=== PATIENT | male | born 1970 | race Caucasian/White ===

== ENCOUNTER → 2021-03-29 | Outpatient (CLI) | payer OTHER | LOC: EMI 13:00 | DX: R20.2 Paresthesia of skin (principal); G56.03 Carpal tunnel syndrome, bilateral upper limbs; G54.0 Brachial plexus disorders; G95.9 Disease of spinal cord, unspecified; G12.20 Motor neuron disease, unspecified; M25.78 Osteophyte, vertebrae; M48.02 Spinal stenosis, cervical region | CPT/HCPCS: 72141 ==